=== PATIENT | female | born 1935 | race Caucasian/White ===

== ENCOUNTER 2017-01-24 19:43 | Emergency (ER) | payer MEDICARE ==
[~2017-01-24] VITALS: Ht 162.6 cm; Wt 63.5 kg
--- NOTE | 2017-01-24 19:45 | NUR ---
Pt [facility] from [facility] un[facility]. Dr. Cuba at bedside. Code stroke called at 1940
[2017-01-24 19:50] VITALS: BP 141/111
--- NOTE | 2017-01-24 19:55 | NUR ---
Pt intubated by ER Dr. Cuba, with 7.0 ET tube, tube was secured at 21cm at the lip. RT's at bedside to assist. Pt was subsequently transported to CT using ambu-bag, and then pt placed on Tanner vent with settings of AC 14, VT 500, FiO2 100%.
--- NOTE | 2017-01-24 19:57 | NUR ---
Resp failure noted. Dr. Cuba and RT at bedside, pt intubated at this time. 7.0 ETT, 20cm at lip, positive color change CO2 detector, positive equal bilateral lung sounds.
[2017-01-24] MEDS ORDERED: PROPOFOL 100 ML IV ONE (19:58)
[2017-01-24] MEDS ORDERED: SUCCINYLCHOLINE CHLORIDE 200 MG/10 ML VIAL IV ONE (20:00)
[2017-01-24] MEDS ORDERED: IV NORMAL SALINE 1000 ML BAG IV ONE (20:00)
[2017-01-24] MEDS ORDERED: NITROGLYCERIN 0.4 MG/TAB BOTTLE SL ONE ×2 (20:00→20:04)
[2017-01-24] MEDS ORDERED: ONDANSETRON 4 MG/2 ML VIAL IV ONE (20:00)
--- NOTE | 2017-01-24 20:00 | NUR ---
Pt to CT via gurney with RT and RN on the monitor.
[2017-01-24 20:10] LABS: BASOPHILS # (AUTO) 0.2 K/uL (0.0-8.0); BASOPHILS % (AUTO) 1.1 % (0.0-2.0); EOSINOPHILS # (AUTO) 0.4 K/uL (0.0-0.7); EOSINOPHILS % (AUTO) 2.3 % (0.0-7.0); HEMATOCRIT 44.9 % (37-47); LYMPHOCYTES # (AUTO) 6.8 K/UL (0.8-4.8); LYMPHOCYTES % (AUTO) 44.7 % (20.5-51.5); MEAN CORPUSCULAR HEMOGLOBIN 29.9 UUG (27.0-31.0); MEAN CORPUSCULAR HGB CONC 34 g/dL (32.0-37.0); MEAN CORPUSCULAR VOLUME 89.5 FL (81.0-99.0); MONOCYTES # (AUTO) 1.2 K/UL (0.1-1.30); MONOCYTES % (AUTO) 7.5 % (0.0-11.0); NEUTROPHILS # (AUTO) 6.8 K/UL (1.8-8.9); NEUTROPHILS % (AUTO) 44.4 % (38.5-71.5); PLATELET COUNT (AUTO) 238 K/UL (150-450); RED BLOOD CELL COUNT(AUTO) 5.01 MIL/UL (4.2-5.4); WHITE BLOOD COUNT (AUTO) 15.4 K/UL (4.0-11.2)
[2017-01-24 20:13] LABS: CARBON DIOXIDE 22 mmol/L (21-32); CHLORIDE 105 mmol/L (98-107); CREATININE 1.3 mg/dL (0.6-1.3); GLUCOSE 163 mg/dL (74-106); POTASSIUM 3.6 mmol/L (3.5-5.1); UREA NITROGEN, BLOOD 25 mg/dL (7-18)
[2017-01-24] MEDS ORDERED: PROPOFOL 100 ML ONE (20:13)
--- NOTE | 2017-01-24 20:23 | NUR ---
CODE BLUE CALLED
--- NOTE | 2017-01-24 20:24 | NUR ---
Refer to code blue paper charting at this time.
--- NOTE | 2017-01-24 20:24 | NUR ---
While in CT pt went into PEA. Wen thomas called and CPR started immediately.
[2017-01-24 20:25] LABS: ALANINE AMINOTRANSFERASE 33 U/L (14-59); ALKALINE PHOSPHATASE 85 U/L (50-136); ASPARTATE AMINOTRANSFERASE 27 U/L (15-37); BILIRUBIN,DIRECT 0.2 mg/dL (0.0-0.2); BILIRUBIN,TOTAL 1.1 mg/dL (0.2-1.0); TOTAL PROTEIN, SERUM 7.6 g/dL (6.4-8.2)
[2017-01-24] MEDS ORDERED: NORMAL SALINE FLUSH 10 ML DISP.SYRIN ONE (20:26)
[2017-01-24] MEDS ORDERED: IOHEXOL 350 100 ML INFUS..BTL ONE (20:26)
[2017-01-24] MEDS ORDERED: IV NORMAL SALINE 0 ML IV ONE (20:26)
[2017-01-24] MEDS ORDERED: CALCIUM CHLORIDE 1 GM/10 ML DISP.SYRIN IVP ONE (20:30)
[2017-01-24] MEDS ORDERED: ATROPINE SULFATE 1 MG/10 ML DISP.SYRIN IV ONE (20:30)
[2017-01-24] MEDS ORDERED: SODIUM BICARBONATE 8.4% 50 MEQ/50 ML DISP.SYRIN IV ONE (20:30)
[2017-01-24] MEDS ORDERED: EPINEPHRINE 1:10,000 1 MG/10 ML DISP.SYRIN ONE (20:30)
--- NOTE | 2017-01-24 20:36 | NUR ---
Time of at 2035. Dr. chen called a stop to the code. Failure to capture with pacing and no cardiac movement or pulses confirmed with u/s heart and carotid.
--- NOTE | 2017-01-24 20:41 | NUR ---
Returned to the ER. Preparing pt for family viewing.
--- NOTE | 2017-01-24 21:13 | NUR ---
CALLED [facility] SPOKE WITH RHEA.CASE #[id number]
--- NOTE | 2017-01-24 21:48 | NUR ---
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
--- NOTE | 2017-01-24 21:50 | NUR ---
Annmarie lee in ED - 01/25/17 at 0602 by JESENIA at bedside.
--- NOTE | 2017-01-24 23:00 | NUR ---
Family does not have pre-arrange mortuary information on hand. Will call nursing pattern shop supervisor tomorrow in the am with the information
--- NOTE | 2017-01-24 23:30 | NUR ---
Family left. Pt cleaned, secured in body bag and taken to [facility].
--- NOTE | 2017-01-24 23:31 | NUR ---
Family contact: Sofia Victoria [phone]
== END 2017-01-24 23:30 | disposition expired ==
LOC: ER 19:44
DX: I46.9 Cardiac arrest, cause unspecified (principal); R94.31 Abnormal electrocardiogram [ECG] [EKG]; J96.00 Acute respiratory failure, unspecified whether with hypoxia or hypercapnia; R40.20 Unspecified coma
CPT/HCPCS: 36415; 70030-TC; 70450; 71010; 85025; 85730; 86850; 86900; 86901; 93005; A4663; J0171; J0330; J0461; J3490; J7050; Q9967